=== PATIENT | male | born 1985 | race Caucasian/White ===

== ENCOUNTER 2021-05-26 08:53 | Emergency (ER) | payer MEDICAID ==
[~2021-05-26] VITALS: Ht 170.2 cm; Wt 113.6 kg
[2021-05-26] MEDS ORDERED: HYDROCODONE/ACETAMINOPHEN 5-325 MG TABLET PO ONE ×2 (10:15→12:30)
[2021-05-26] MEDS ORDERED: POVIDONE-IODINE 10% 120 ML SOLUTION TP ONE (10:15)
[2021-05-26] MEDS ORDERED: BUPIVACAINE HCL/PF 0.25% 10 ML VIAL PERC ONE (10:15)
[2021-05-26 12:59] VITALS: BP 131/91
== END 2021-05-26 13:01 | disposition home or self-care (01) ==
LOC: EMS 08:57
DX: L02.31 Cutaneous abscess of buttock (principal); F17.210 Nicotine dependence, cigarettes, uncomplicated; L03.317 Cellulitis of buttock; L73.2 Hidradenitis suppurativa
CPT/HCPCS: 10060; 87070; 99283; J3490